=== PATIENT | male | born 1990 | race Caucasian/White ===

== ENCOUNTER 2018-05-17 00:55 | Emergency (ER) | payer SELFPAY ==
[~2018-05-17] VITALS: Ht 185.4 cm; Wt 77.1 kg
[2018-05-17] MEDS ORDERED: NKM (01:10)
[2018-05-17 01:25] VITALS: BP 139/90
--- NOTE | 2018-05-17 01:25 | NUR ---
ED Nurse Note: Patient presents to ED c/o abscess on upper buttocks. Patient reports the one on the right buttock has been reccurring for 10x years. Patient states the one on the left buttock has been there for 1x week. Patient reports 10/10 throbbing pain. Patient AOx4, VSS, ambulatory with steady gait, no s/s of acute distress noted at this time. Patient seen by ADRIELD at bedside.
[2018-05-17] MEDS ORDERED: HYDROCODON-ACE1 EA15 ORAL (01:36)
[2018-05-17] MEDS ORDERED: IBUPROFEN600 MG ORAL (01:36)
[2018-05-17] MEDS ORDERED: BACTRIM DS TAB1 EAC1 ORAL (01:36)
--- NOTE | 2018-05-17 01:37 | Emergency Room Report ---
History of Present Illness General Chief Complaint: Skin Rash/Abscess Source: Patient Present Illness HPI Is a 28-year-old male with a history of pilonidal this. He presents with chief complaint of swelling and pain to that area. His been ongoing for a while but worse in the last week. Now with left leg is in a drain. Pain is 10 out of 10. Worse with palpation and movement. No fever or chills. Seen his doctor before and was prescribe antibiotics. Not helping. No other complaint. Allergies: Coded Allergies: No Known Allergies (Unverified , 05/17/18) Patient History Past Medical History: see triage record, old chart reviewed Past Surgical History: none Pertinent Family History: none Social History: Denies: smoking Immunizations: other Reviewed Nursing Documentation: PMH: Agreed; PSxH: Agreed Review of Systems Eye: Denies: eye pain, blurred vision ENT: Denies: ear pain, nose congestion, throat swelling Respiratory: Denies: cough, shortness of breath Cardiovascular: Denies: chest pain, palpitations Gastrointestinal: Denies: abdominal pain, diarrhea, nausea, vomiting Musculoskeletal: Denies: back pain, joint pain Skin: Denies: rash Neurological: Denies: headache, numbness Endocrine: Denies: increased thirst, increased urine Hematologic/Lymphatic: Denies: easy bruising All Other Systems: negative except mentioned in HPI Physical Exam Vital Signs Date Time Temp Pulse Resp B/P (MAP) Pulse Ox O2 Delivery O2 Flow Rate FiO2 05/17/18 01:04 99.3 97 18 139/90 95 Room Air vitals normal Sp02 EP Interpretation: reviewed, normal General Appearance: well appearing, no apparent distress, alert Head: normocephalic, atraumatic Eyes: bilateral eye PERRL, bilateral eye EOMI ENT: hearing grossly normal, normal pharynx Neck: full range of motion, supple, no meningismus Respiratory: chest non-tender, lungs clear, normal breath sounds Cardiovascular #1: regular rate, rhythm, no murmur Gastrointestinal: normal bowel sounds, non tender, no mass, no organomegaly, no bruit, non-distended Rectal: other - Patient with a pilonidal abscess mostly on the right side. There is to area of necrosis. Very tender to palpation. Musculoskeletal: back normal, gait/station normal, normal range of motion Neurologic: alert, oriented x3 Psychiatric: mood/affect normal Skin: warm/dry Procedures Incision and Drainage Incision and Drainage : Consent: Verbal Site: Buttock Blade Size: 11 I & D Procedure: betadine prep, gauze wick placed Wound Location: other - Buttock Anesthesia: 1% Lidocaine Volume Anesthetic (ccs): 5 Patient Tolerated: Well Complications: None Progress Area cleaned with chlorhexidine. Local anesthetic 1% lidocaine with epinephrine. I made a 1 cm incision. There was copious amount of purulent discharge. Luckily the area broken up. Wound irrigated. Then packed with iodoform gauze. Patient tolerates procedure without a problem. Medical Decision Making Diagnostic Impression: Primary Impression: Pilonidal abscess ER Course Patient presents with an infected upon idle cysts with abscess. No evidence of deep infection or involvement to the rectal area. We'll discharge home. Last Vital Signs Date Time Temp Pulse Resp B/P (MAP) Pulse Ox O2 Delivery O2 Flow Rate FiO2 05/17/18 01:04 99.3 97 18 139/90 95 Room Air Status: improved Disposition: HOME, SELF-CARE Condition: Stable Scripts Ibuprofen* (MOTRIN*) 600 Mg Tablet 600 MG ORAL THREE TIMES A DAY, #30 TAB 0 Refills Prov: Byron Vega MD 05/17/18 Hydrocodone/Acetaminophen 5-325* (HYDROCODONE/ACETAMINOPHEN 5-325*) 1 Each Tablet 1 TAB ORAL Q6H PRN for For Pain, #10 TAB 0 Refills Prov: Byron Vega MD 05/17/18 Trimethoprim/Sulfamethoxazole 160/800* (BACTRIM DS TABLET*) 1 Each Tablet 1 TAB ORAL Q12H, #14 TAB 0 Refills Prov: Byron Vega MD 05/17/18 Referrals: NOT CHOSEN IPA/,REFERRING (PCP) Patient Instructions: Abscess Additional Instructions: Follow up in 2 days for recheck. Return if worse. Byron Vega MD May 17, 2018 01:37
--- NOTE | 2018-05-17 02:18 | NUR ---
ED Nurse Note: Patient cleared for discharge by NIKKI. Patient AOx4, VSS, ambulatory with steady gait, no s/s of acute distress noted at htis time. Patient provided with discharge instructions and medication prescriptions. Patient verbalized understanding. patient took all personal belongings with him. Patient has his friend at bedside to take him home. Patient instructed to follow up in 2x days.
[2018-05-17 02:19] VITALS: BP 139/90
== END 2018-05-17 02:20 | disposition home or self-care (01) ==
LOC: EMR 01:22
DX: R21 Rash and other nonspecific skin eruption (principal); L05.01 Pilonidal cyst with abscess
CPT/HCPCS: 99283

== ENCOUNTER 2018-05-19 15:14 | Emergency (ER) | payer SELFPAY ==
[~2018-05-19] VITALS: Ht 185.4 cm; Wt 74.8 kg
[~2018-05-19 15:14] MED LIST: BACTRIM DS TAB1 EAC1 ORAL; HYDROCODON-ACE1 EA15 ORAL; IBUPROFEN600 MG ORAL; NKM
[2018-05-19 15:24] VITALS: BP 126/86
--- NOTE | 2018-05-19 15:25 | NUR ---
ED Nurse Note: Patient came in from home for wound recheck follow up s/p I&D on the posterior sacral area.
--- NOTE | 2018-05-19 15:40 | Emergency Room Report ---
History of Present Illness General Chief Complaint: Wound Recheck/Suture Removal Source: Patient, Medical Record Present Illness HPI 28-year-old male patient presents the ER for wound check of pilonidal abscess. Reports having abscess drained in this ER 2 days ago. Reports is been taking medications and antibiotics as instructed. Denies fever, chest pain, vomiting, diarrhea. Reports healing well. Reports pain with sitting. Denies blood in stool. Denies other aggravating or relieving symptoms. Denies pain with bowel movements. Allergies: Coded Allergies: No Known Allergies (Unverified , 05/17/18) Patient History Past Medical History: see triage record Reviewed Nursing Documentation: PMH: Agreed; PSxH: Agreed Review of Systems All Other Systems: negative except mentioned in HPI Physical Exam Vital Signs Date Time Temp Pulse Resp B/P (MAP) Pulse Ox O2 Delivery O2 Flow Rate FiO2 05/19/18 15:19 98.6 91 17 126/86 98 Room Air Sp02 EP Interpretation: reviewed, normal General Appearance: well appearing, no apparent distress, alert, GCS 15, non- toxic Head: normocephalic, atraumatic Eyes: bilateral eye normal inspection, bilateral eye PERRL ENT: hearing grossly normal, normal pharynx, no angioedema, normal voice, uvula midline, moist mucus membranes Neck: full range of motion Respiratory: lungs clear, normal breath sounds, no rhonchi, no respiratory distress, no accessory muscle use, no wheezing, speaking full sentences Cardiovascular #1: regular rate, rhythm, no edema Musculoskeletal: back normal, digits/nails normal, gait/station normal, normal range of motion, non-tender Neurologic: alert, oriented x3, responsive, motor strength/tone normal, sensory intact Psychiatric: mood/affect normal Skin: other - Healing drained pilonidal abscess mostly on right side, no surrounding erythema or edema, open wound with iodoform gauze Medical Decision Making PA Attestation Dr. Ledezma is my supervising Physician whom patient management has been discussed with. Diagnostic Impression: Primary Impression: Encounter for wound re-check ER Course Pt. presents to the ED requesting wound check of pilonidal abscess. Ddx considered but are not limited to cellulitis, abscess, wound check, folliculitis. Vital signs: are WNL, pt. is afebrile ER COURSE: Wound appears to be healing well, no surrounding erythema or edema, no active drainage. Wound cleaned in the ER. Repacked with iodoform gauze and instructed patient return to the ER in 3 days for follow-up with primary care provider for wound check. Wound redressed with sterile gauze. Continue taking medications as previously instructed. ER precautions given. DISCHARGE: Patient instructed to continue with medications per initial ER provider instructions. At this time pt. is stable for d/c to home. Patient resting comfortably, in no acute distress, nontoxic appearing. Will provide printed patient care instructions and any necessary prescriptions. Care plan and follow up instructions have been discussed with the patient prior to discharge. Patient instructed to follow-up with primary care provider for further treatment and referral. Patient questions asked and answered. ER precautions given. Patient instructed to return to ER immediately for any new or worsening of symptoms including but not limited to fever, worsening of pain symptoms. - Please note that this Emergency Department Report was dictated using [employer] operations director technology software, occasionally this can lead to erroneous entry secondary to interpretation by the dictation equipment. Last Vital Signs Date Time Temp Pulse Resp B/P (MAP) Pulse Ox O2 Delivery O2 Flow Rate FiO2 05/19/18 15:24 98.6 91 17 126/86 98 Room Air Status: improved Disposition: HOME, SELF-CARE Condition: Stable Patient Instructions: Wound Check Additional Instructions: Followup with primary care provider or return to ER in 3 days for wound check. Take medications as directed. Keep clean and dry. Patient questions asked and answered. ER precautions given, patient instructed to return to ER immediately for any new or worsening of symptoms. Carlos Alberto Lombardi May 19, 2018 15:40
--- NOTE | 2018-05-19 16:20 | NUR ---
ED Nurse Note: PT is medically cleared per ERMD order. pt is stable for transfer. pt status condition and vital signs are reported to ERMD prior to DC. pt vital signs are stable. pt is alert and oriented times 4. pt left with all belongings, including DC notes and prescriptions. pt was able to teach back and understands DC notes and prescription. pt is instructed to follow up with primary MD as soon as possible, pt is instructed to return to ER if any variance in condition. ID band removed
[2018-05-19 16:23] VITALS: BP 126/86
[2018-10-13] MEDS ORDERED: IBUPROFEN600 MG ORAL ×2 (20:02)
== END 2018-05-19 16:20 | disposition home or self-care (01) ==
LOC: EMR 15:50
DX: Z48.00 Encounter for change or removal of nonsurgical wound dressing (principal); L05.01 Pilonidal cyst with abscess
CPT/HCPCS: 99281

== ENCOUNTER 2018-07-23 20:53 | Emergency (ER) | payer SELFPAY ==
[~2018-07-23] VITALS: Ht 185.4 cm; Wt 70.3 kg
[2018-07-23 21:17] VITALS: BP 125/76
--- NOTE | 2018-07-23 21:17 | NUR ---
ED Nurse Note: Pt arrived ED from Home, c/o Flu like symptum and general body weekness for a week. Pt is A/O X4. Vital signs stable at this time, waiting for orders.
[2018-07-23] MEDS ORDERED: TAMIFLU75 MG ORAL (21:35)
[2018-07-23] MEDS ORDERED: IBUPROFEN600 MG ORAL (21:35)
[2018-07-23 21:40] VITALS: BP 123/75
--- NOTE | 2018-07-23 21:40 | NUR ---
ER DISCHARGE NOTE: Patient is cleared to be discharged per Dr. Artis. Meds given as ordered. Pt is A/Ox4 on room air with stable vital signs, pt was given dc and prescription instructions, pt was able to verbalize understanding, pt id band removed. pt is able to ambulate with steady gait and pt took all belongings.
--- NOTE | 2018-07-24 01:20 | Emergency Room Report ---
History of Present Illness General Chief Complaint: Flu Like Symptoms Source: Patient Present Illness HPI 28-year-old M presents ED for evaluation. Patient complaining of generalized weakness times one week. States he has generalized body aches and chills. Notes congestion. Denies cough. States she's been very thirsty and drinking lots of water. Denies history of diabetes. Denies sick contacts or recent travel. Denies getting flu shot this year. No other aggravating relieving factors. Denies any other associated symptoms Allergies: Coded Allergies: No Known Allergies (Unverified , 05/17/18) Patient History Past Medical History: none Past Surgical History: none Pertinent Family History: none Social History: Denies: smoking, alcohol use, drug use Immunizations: UTD Reviewed Nursing Documentation: PMH: Agreed; PSxH: Agreed Nursing Documentation-PMH Past Medical History: No History, Except For Review of Systems All Other Systems: negative except mentioned in HPI Physical Exam Vital Signs Date Time Temp Pulse Resp B/P (MAP) Pulse Ox O2 Delivery O2 Flow Rate FiO2 07/23/18 21:11 99.9 89 18 125/76 98 Room Air Sp02 EP Interpretation: reviewed, normal General Appearance: no apparent distress, alert, GCS 15, non-toxic Head: normocephalic, atraumatic Eyes: bilateral eye normal inspection, bilateral eye PERRL ENT: hearing grossly normal, normal pharynx, no angioedema, normal voice Neck: full range of motion, supple/symm/no masses Respiratory: chest non-tender, lungs clear, normal breath sounds, speaking full sentences Cardiovascular #1: regular rate, rhythm, no edema Cardiovascular #2: 2+ carotid (R), 2+ carotid (L), 2+ radial (R), 2+ radial (L) , 2+ dorsalis pedis (R), 2+ dorsalis pedis (L) Gastrointestinal: normal bowel sounds, non tender, soft, non-distended, no guarding, no rebound Rectal: deferred Genitourinary: normal inspection, no CVA tenderness Musculoskeletal: back normal, gait/station normal, normal range of motion, non- tender Neurologic: alert, oriented x3, responsive, motor strength/tone normal, sensory intact, speech normal Psychiatric: judgement/insight normal, memory normal, mood/affect normal, no suicidal/homicidal ideation Reflexes: 3+ bicep (R), 3+ bicep (L), 3+ tricep (R), 3+ tricep (L), 3+ knee (R) , 3+ knee (L) Skin: normal color, no rash, warm/dry, well hydrated Lymphatic: no adenopathy Medical Decision Making Diagnostic Impression: Primary Impression: Influenza-like symptoms ER Course Hospital Course 28-year-old M presents to ED complaining of bodyaches, weakness Differential diagnoses include: URI, pharyngitis, otitis media, influenza Clinical course Patient placed on stretcher. After initial history physical exam reveals a young male in no acute distress. Bilateral TM unremarkable, no pharyngeal erythema. Lungs clear. No CVA tenderness. Accu-Chek within normal limits consideration for influenza. We'll discharge with Tamiflu. Safe for discharge with close outpatient follow-up. Patient states he does not have a PMD. We'll provide referrals Diagnosis - influenza-like symptoms Stable and discharged home with prescriptions for tamiflu, motrin. drink plenty of fluids. Instructed to followup with PMD. Return to ED if symptoms recur or worsen Last Vital Signs Date Time Temp Pulse Resp B/P (MAP) Pulse Ox O2 Delivery O2 Flow Rate FiO2 07/23/18 21:11 99.9 89 18 125/76 98 Room Air Status: improved Disposition: HOME, SELF-CARE Condition: Stable Scripts Ibuprofen* (MOTRIN*) 600 Mg Tablet 600 MG ORAL Q8H PRN for For Pain, #30 TAB 0 Refills Prov: Zenon Artis MD 07/23/18 Oseltamivir Phosphate (Tamiflu) 75 Mg Capsule 75 MG ORAL TWICE A DAY for 5 Days, CAP Prov: Zenon Artis MD 07/23/18 Referrals: [facility] Patient Instructions: Influenza, Adult, [id number] Zenon Artis MD Jul 24, 2018 01:20
== END 2018-07-23 21:50 | disposition home or self-care (01) ==
LOC: EMR 21:46
DX: J11.1 Influenza due to unidentified influenza virus with other respiratory manifestations (principal)
CPT/HCPCS: 99282

== ENCOUNTER 2018-10-13 17:07 | Emergency (ER) | payer SELFPAY ==
[~2018-10-13] VITALS: Ht 185.4 cm; Wt 74.8 kg
[~2018-10-13 17:07] MED LIST changes: +TAMIFLU75 MG ORAL
[2018-10-13 17:30] VITALS: BP 133/85
--- NOTE | 2018-10-13 18:06 | NUR ---
ED Nurse Note: Patient presents toER due to redness, swelling on the right posterior thigh for the past few days; reports no fever, chill or N/V. Denies any injury or insect bite. Patient awake, alert, oriented x 4. Regular, unlabored breathing noted.
--- NOTE | 2018-10-13 19:04 | Emergency Room Report ---
History of Present Illness General Chief Complaint: Skin Rash/Abscess Source: Patient Present Illness HPI 28-year-old male presents to the emergency department complaining of 10 out of 10 severity progressive pain, swelling, erythema and tenderness to the posterior aspect of the right thigh over the course of 3 days. Patient reports he at one point noticed a small macias in the center of where all the redness progressed from. Patient denies fevers or chills he denies illicit drug use, history of immune compromise, itching or recent travel. Palpation exacerbates his symptoms he denies any relieving factors at this time. Allergies: Coded Allergies: No Known Allergies (Unverified , 05/17/18) Patient History Past Medical History: see triage record Past Surgical History: none Pertinent Family History: none Reviewed Nursing Documentation: PMH: Agreed Nursing Documentation-PMH Past Medical History: No History, Except For Review of Systems All Other Systems: negative except mentioned in HPI Physical Exam Vital Signs Date Time Temp Pulse Resp B/P (MAP) Pulse Ox O2 Delivery O2 Flow Rate FiO2 10/13/18 17:30 99.1 16 133/85 96 Room Air 10/13/18 17:30 74 Sp02 EP Interpretation: reviewed, normal General Appearance: no apparent distress, alert, GCS 15, non-toxic Head: normocephalic, atraumatic Eyes: bilateral eye normal inspection, bilateral eye PERRL ENT: hearing grossly normal, normal voice Neck: full range of motion Respiratory: lungs clear, normal breath sounds, speaking full sentences Cardiovascular #1: regular rate, rhythm Musculoskeletal: back normal, gait/station normal, normal range of motion, non- tender Neurologic: alert, oriented x3, responsive, motor strength/tone normal, sensory intact, speech normal, grossly normal Psychiatric: judgement/insight normal Skin: no rash, warm/dry, well hydrated, other - 2cm abscess with surrounding erythema, and warmth of the posterior right thigh. Procedures Incision and Drainage Incision and Drainage : Consent: Verbal Site: right posterior thigh Blade Size: 11 I & D Procedure: betadine prep, sterile drapes applied, sterile dressing applied Wound Location: other - right posterior thigh Wound's Depth, Shape: linear Wound Length (cm): 2 Wound Explored: contaminated - pus Anesthesia: Lidocaine w/ Epi Volume Anesthetic (ccs): 3 Splint Applied?: No Sling Applied?: No Patient Tolerated: Well Complications: None Medical Decision Making PA Attestation Dr. Box is my supervising Physician whom patient management has been discussed with. Diagnostic Impression: Primary Impression: Abscess ER Course 28-year-old male presents to the emergency department complaining of 10 out of 10 severity progressive pain, swelling, erythema and tenderness to the posterior aspect of the right thigh over the course of 3 days. Patient reports he at one point noticed a small macias in the center of where all the redness progressed from. Patient denies fevers or chills he denies illicit drug use, history of immune compromise, itching or recent travel. Palpation exacerbates his symptoms he denies any relieving factors at this time. Ddx considered but are not limited to cellulitis, abscess, cystic acne, necrotizing fasciitis, insect bite. Vital signs: are WNL, pt. is afebrile H&PE are most consistent with Right posterior thigh abscess ORDERS: none required at this time, the diagnosis is clinical ED INTERVENTIONS: -I & D. -Motrin PO DISCHARGE: At this time pt. is stable for d/c to home. Will provide printed patient care instructions, and any necessary prescriptions. Care plan and follow up instructions have been discussed with the patient prior to discharge. Last Vital Signs Date Time Temp Pulse Resp B/P (MAP) Pulse Ox O2 Delivery O2 Flow Rate FiO2 10/13/18 17:30 99.1 74 16 133/85 (101) 96 Room Air Disposition: HOME, SELF-CARE Condition: Stable Scripts Ibuprofen* (MOTRIN*) 600 Mg Tablet 600 MG ORAL THREE TIMES A DAY, #30 TAB 0 Refills Prov: Hannah Muller 10/13/18 Trimethoprim/Sulfamethoxazole 160/800* (BACTRIM DS TABLET*) 1 Each Tablet 1 TAB ORAL TWICE A DAY for 7 Days, #14 TAB Prov: Hannah Muller 10/13/18 Cephalexin* (KEFLEX*) 500 Mg Capsule 500 MG ORAL EVERY 12 HOURS for 7 Days, #14 CAP 0 Refills Prov: Hannah Muller 10/13/18 Patient Instructions: Abscess Additional Instructions: Take medications as directed. Follow up with a Primary Care Provider in 3-5 days, even if your symptoms have resolved. --Please review list of primary care clinics, if you do not already have a primary care provider Return sooner to ED if new symptoms occur, or current symptoms become worse. - Please note that this Emergency Department Report was dictated using [employer] device repairer technology software, occasionally this can lead to erroneous entry secondary to interpretation by the dictation equipment. Hannah Muller Oct 13, 2018 19:04
[2018-10-13] MEDS ORDERED: CEPHALEXIN500 MG ORAL (19:05)
[2018-10-13] MEDS ORDERED: BACTRIM DS TAB1 EAC1 ORAL (19:05)
--- NOTE | 2018-10-13 19:15 | NUR ---
HAND-OFF: Report given to Marcy JACKSON.
[2018-10-13] MEDS ORDERED: IBUPROFEN600 MG ORAL (20:02)
[2018-10-13 20:06] VITALS: BP 133/85
--- NOTE | 2018-10-13 22:55 | NUR ---
ED Nurse Note: Pt cleared by health care Provider for discharge. DC instructions/prescription was given and explained to pt and verbalized understanding of teachings. All medical deviecs such as ID band removed. Pt is AAO x4, ambulatory and left with all personal belongings.
== END 2018-10-13 20:06 | disposition home or self-care (01) ==
LOC: EMR 18:00
DX: L02.415 Cutaneous abscess of right lower limb (principal)
CPT/HCPCS: 99283

== ENCOUNTER 2018-11-24 08:29 | Emergency (ER) | payer SELFPAY ==
[~2018-11-24] VITALS: Ht 185.4 cm; Wt 73.0 kg
[~2018-11-24 08:29] MED LIST changes: +CEPHALEXIN500 MG ORAL
--- NOTE | 2018-11-24 08:43 | NUR ---
ED Nurse Note: Pt walked in ED c/o abdominal pain, "ongoing rectal bleeding" x 3 months. Last BM 4 days ago per patient.
[2018-11-24] MEDS ORDERED: Isovue-300 100ml vial INJ PRN (08:45)
--- NOTE | 2018-11-24 08:51 | NUR ---
ED Nurse Note: ERMD at bedside.
[2018-11-24] MEDS ORDERED: Azithromycin 250mg tab ORAL ONE (09:00)
[2018-11-24] MEDS ORDERED: Bicillin LA 2.4MMU/4ML SYR IM ONE (09:00)
[2018-11-24] MEDS ORDERED: cefTRIAXone 1 GM in NS 55 ML IVPB ONE (09:00)
--- NOTE | 2018-11-24 09:00 | NUR ---
ED Nurse Note: ERMD at bedside and was chaperoned for rectal exam.
--- NOTE | 2018-11-24 09:02 | Emergency Room Report ---
History of Present Illness General Chief Complaint: Abdominal Pain Source: Patient Present Illness HPI 28-year-old male history of ADHD presents with 3 months of mildly bloody stools , with abdominal cramps, no aggravating or alleviating factors, severity is mild , patient also endorses weight loss, patient states over the past 2 days he had a lot of rectal pain, tenesmus, some blood mixed in with the stool, fever subjective, chills, body aches, patient states he had receptive anal intercourse 5 days prior to arrival, he states that the rectal pain is sharp in nature, moderate severity aggravated by defecation, alleviated by rest, severity is moderate, patient presents for evaluation. Allergies: Coded Allergies: No Known Allergies (Unverified , 05/17/18) Patient History Past Medical History: see triage record Social History: Reports: smoking, alcohol use - Social Reviewed Nursing Documentation: PMH: Agreed; PSxH: Agreed Nursing Documentation-PM Past Medical History: No History, Except For Review of Systems Constitutional: Reports: chills, fever Eye: Denies: blurred vision, double vision ENT: Denies: throat pain, nasal discharge Respiratory: Denies: cough, shortness of breath Cardiovascular: Denies: chest pain, palpitations Gastrointestinal: Reports: abdominal pain, constipation, diarrhea, other; Denies: nausea, vomiting Genitourinary: Denies: dysuria, pain Musculoskeletal: Reports: muscle pain; Denies: back pain Skin: Denies: rash, lesions Neurological: Denies: headache, focal weakness Hematologic/Lymphatic: Denies: easy bleeding, easy bruising All Other Systems: negative except mentioned in HPI Physical Exam Vital Signs Date Time Temp Pulse Resp B/P (MAP) Pulse Ox O2 Delivery O2 Flow Rate FiO2 11/24/18 08:31 98.4 83 17 128/86 (100) 97 Room Air Sp02 EP Interpretation: reviewed, normal General Appearance: well appearing, no apparent distress, alert Head: normocephalic, atraumatic Eyes: bilateral eye PERRL, bilateral eye EOMI ENT: uvula midline, moist mucus membranes Neck: supple, thyroid normal, supple/symm/no masses Respiratory: lungs clear, no respiratory distress, no retraction, no accessory muscle use Cardiovascular #1: normal peripheral pulses, regular rate, rhythm, no edema, no gallop, no murmur Gastrointestinal: non tender, soft, no guarding, no rebound Rectal: other - Cold Working Inspector MAR I RN, Hemoccult positive, no hemorrhoids felt, no drainage or pus noted, severe tenderness to palpation in the rectal area, patient was clenching difficult to palpate prostate Musculoskeletal: normal inspection Neurologic: alert, oriented x3 Psychiatric: mood/affect normal Skin: no rash, warm/dry Medical Decision Making Diagnostic Impression: Primary Impression: Proctitis ER Course 28-year-old male presents with symptoms of weight loss, x3 months, will evaluate for large mass, symptoms of tenesmus, most consistent with proctitis, on the differential includes chlamydia, gonorrhea, syphilis, will page provide patient with Bicillin, ceftriaxone, azithromycin, counseled patient to seek STD treatment, and to utilize protection during sexual encounters. Patient given antibiotics, patient is feeling better, patient has gas in his right buttock secondary to penicillin injection, correlated with CT Disposition home with return precautions Laboratory Tests Test 11/24/18 08:50 White Blood Count 7.1 K/UL (4.8-10.8) Red Blood Count 5.71 M/UL (4.70-6.10) Hemoglobin 15.5 G/DL (14.2-18.0) Hematocrit 48.2 % (42.0-52.0) Mean Corpuscular Volume 84 FL (80-99) Mean Corpuscular Hemoglobin 27.2 PG (27.0-31.0) Mean Corpuscular Hemoglobin Concent 32.2 G/DL (32.0-36.0) Red Cell Distribution Width 12.2 % (11.6-14.8) Platelet Count 228 K/UL (150-450) Mean Platelet Volume 5.8 FL (6.5-10.1) L Neutrophils (%) (Auto) 64.1 % (45.0-75.0) Lymphocytes (%) (Auto) 26.7 % (20.0-45.0) Monocytes (%) (Auto) 7.0 % (1.0-10.0) Eosinophils (%) (Auto) 1.4 % (0.0-3.0) Basophils (%) (Auto) 0.8 % (0.0-2.0) Prothrombin Time 10.0 SEC (9.30-11.50) Prothrombin Time INR 0.9 (0.9-1.1) PTT 30 SEC (23-33) Urine Color Yellow Urine Appearance Clear Urine pH 7 (4.5-8.0) Urine Specific [place] 1.010 (1.005-1.035) Urine Protein Negative (NEGATIVE) Urine Glucose (UA) Negative (NEGATIVE) Urine Ketones Negative (NEGATIVE) Urine Blood Negative (NEGATIVE) Urine Nitrite Negative (NEGATIVE) Urine Bilirubin Negative (NEGATIVE) Urine Urobilinogen 4 MG/DL (0.0-1.0) H Urine Leukocyte Esterase 1+ (NEGATIVE) H Urine RBC 0 /HPF (0 - 0) Urine WBC 0-2 /HPF (0 - 0) Urine Squamous Epithelial Cells Occasional /LPF Urine Amorphous Sediment Moderate /LPF (NONE) H Urine Bacteria None /HPF (NONE) Urine Mucus Few /LPF (NONE/OCC) H Sodium Level 142 MMOL/L (136-145) Potassium Level 3.9 MMOL/L (3.5-5.1) Chloride Level 105 MMOL/L (98-107) Carbon Dioxide Level 34 MMOL/L (21-32) H Anion Gap 3 mmol/L (5-15) L Blood Urea Nitrogen 11 mg/dL (7-18) Creatinine 1.0 MG/DL (0.55-1.30) Estimate Glomerular Filtration Rate > 60 mL/min (>60) Glucose Level 60 MG/DL (74-106) L Calcium Level 9.2 MG/DL (8.5-10.1) Total Bilirubin 0.6 MG/DL (0.2-1.0) Aspartate Amino Transferase (AST) 12 U/L (15-37) L Alanine Aminotransferase (ALT) 19 U/L (12-78) Alkaline Phosphatase 85 U/L (46-116) Total Protein 8.6 G/DL (6.4-8.2) H Albumin 3.8 G/DL (3.4-5.0) Globulin 4.8 g/dL Albumin/Globulin Ratio 0.8 (1.0-2.7) L Lipase 56 U/L (73-393) L CT/MRI/US Diagnostic Results CT/MRI/US Diagnostic Results : Impression Impression: Limited assessment of the GI tract, due to lack of enteric contrast 7 x 1 cm collection of gas bubbles within the right gluteus naseem musculature. This may indicate an area of recent injection, but is unusually large for such and the possibility of active infection with a gas-forming organism should be considered No definite rectal or colonic abnormality to explain stated clinical history of GI bleed Nonspecific prominent perirectal nodes Mild prominence of the proximal small bowel mucosa, doubtful significance but the possibility of mild enteritis should be considered Borderline splenomegaly Findings discussed by phone with Dr. Farah in the emergency room at the time of interpretation The CT scanner at [facility] is accredited by the [employer] and the scans are performed using protocols designed to limit radiation exposure to as low as reasonably achievable to attain images of sufficient resolution adequate for diagnostic evaluation. Last Vital Signs Date Time Temp Pulse Resp B/P (MAP) Pulse Ox O2 Delivery O2 Flow Rate FiO2 11/24/18 08:31 98.4 83 17 128/86 (100) 97 Room Air Referrals: [facility] Patient Instructions: Chlamydia, Male, Proctitis, Safe Sex, Sexually Transmitted Disease, [id number], Syphilis Test Additional Instructions: The patient was provided with discharge instructions, notified to follow-up with a primary care doctor and or specialist in the next 24-48 hours, and to return to the ED if they have worsening of their symptoms. Please note that this report is being documented using Hailo technology. This can lead to erroneous entry secondary to incorrect interpretation by the dictating instrument. Kirby Farah MD Nov 24, 2018 09:02
[2018-11-24 09:14] LABS: APPEARANCE,URINE CLEAR; BILIRUBIN, URINE NEGATIVE (NEGATIVE); GLUCOSE, URINE (UA) NEGATIVE (NEGATIVE); KETONES,URINE NEGATIVE (NEGATIVE); LEUKOCYTE ESTERASE ,URINE 1+ (NEGATIVE); NITRITE,URINE NEGATIVE (NEGATIVE); PH,URINE 7 (4.5-8.0); PROTEIN,URINE NEGATIVE (NEGATIVE); UROBILINOGEN,URINE 4 MG/DL (0.0-1.0)
[2018-11-24 09:17] LABS: BASOPHILS % (AUTO) 0.8 % (0.0-2.0); COLOR,URINE YELLOW; EOSINOPHILS % (AUTO) 1.4 % (0.0-3.0); HEMATOCRIT 48.2 % (42.0-52.0); HEMOGLOBIN 15.5 G/DL (14.2-18.0); LYMPHOCYTES % (AUTO) 26.7 % (20.0-45.0); MEAN CORPUSCULAR VOLUME 84 FL (80-99); NEUTROPHILS % (AUTO) 64.1 % (45.0-75.0); PLATELET COUNT 228 K/UL (150-450); RED BLOOD COUNT 5.71 M/UL (4.70-6.10); RED CELL DISTRIBUTION WIDTH 12.2 % (11.6-14.8); WHITE BLOOD COUNT 7.1 K/UL (4.8-10.8)
[2018-11-24 09:24] LABS: INR 0.9 (0.9-1.1)
[2018-11-24 09:25] LABS: ANION GAP 3 mmol/L (5-15); BLOOD UREA NITROGEN 11 mg/dL (7-18); CALCIUM 9.2 MG/DL (8.5-10.1); CARBON DIOXIDE 34 MMOL/L (21-32); CHLORIDE 105 MMOL/L (98-107); POTASSIUM 3.9 MMOL/L (3.5-5.1); SODIUM 142 MMOL/L (136-145)
[2018-11-24 09:32] VITALS: BP 123/66
[2018-11-24 09:33] LABS: ALANINE AMINOTRANSFERASE 19 U/L (12-78); ALBUMIN 3.8 G/DL (3.4-5.0); ALBUMIN/GLOBULIN RATIO 0.8 (1.0-2.7); ALKALINE PHOSPHATASE 85 U/L (46-116); ASPARTATE AMINO TRANSFERASE 12 U/L (15-37); BILIRUBIN,TOTAL 0.6 MG/DL (0.2-1.0)
[2018-11-24] MEDS ORDERED: NKM (09:42)
--- NOTE | 2018-11-24 09:43 | NUR ---
ED Nurse Note: Pt went down for CT in stable condition.
--- NOTE | 2018-11-24 09:58 | NUR ---
ED Nurse Note: Pt back from CT in stable condition.
[2018-11-24 10:01] VITALS: BP 122/83
[2018-11-24] MEDS ORDERED: Morphine Sulfate 4mg/ml Inj (IV USE ONLY) IVP ONE (10:30)
[2018-11-24 10:34] VITALS: BP 112/77
--- NOTE | 2018-11-24 10:42 | Diagnostic Imaging Report ---
Clinical Indication: Abdominal pain Technique: No oral contrast utilized, per emergency room physician request IV administration nonionic contrast. Venous phase spiral acquisition obtained through the abdomen and pelvis. Multiplanar reconstructions were generated. Total dose length product 626.63 mGycm. CTDIvol(s) 11.66 mGy. Dose reduction achieved using automated exposure control Comparison: none Findings: Lack of enteric contrast limits assessment of the GI tract. The appendix is normal no evidence of diverticulosis or diverticulitis. No small bowel distention. There is equivocal mild wall thickening of the proximal jejunum, with slight enhancement of the bowel wall. Moderate amount of fluid is seen in distal small bowel loops. No free or loculated intraperitoneal gas or fluid. Distal esophagus, stomach, duodenum are unremarkable. No significant perirectal abnormality is demonstrated. No significant renal abnormality demonstrated. A collection of gas bubbles in seen within the right gluteus naseem muscle. The area of gas bubbles measures approximately 7 cm long axis dimension by about 1 cm orthogonal short axis dimension. There is no associated fluid. The liver is unremarkable. The gallbladder is contracted and no definite gallstones are identified. Bile ducts, pancreas are unremarkable. The spleen is borderline enlarged, measuring 13.5 cm long axis dimension. There is an accessory splenule. The adrenals and kidneys are unremarkable. No renal or ureteral calculi, hydronephrosis, or hydroureter. No retroperitoneal or mesenteric mass or adenopathy. No pelvic mass. There are somewhat prominent perirectal lymph nodes measuring up to 1 cm in diameter.. The included lung bases are clear. The bones are unremarkable. Impression: Limited assessment of the GI tract, due to lack of enteric contrast 7 x 1 cm collection of gas bubbles within the right gluteus naseem musculature. This may indicate an area of recent injection, but is unusually large for such and the possibility of active infection with a gas-forming organism should be considered No definite rectal or colonic abnormality to explain stated clinical history of GI bleed Nonspecific prominent perirectal nodes Mild prominence of the proximal small bowel mucosa, doubtful significance but the possibility of mild enteritis should be considered Borderline splenomegaly Findings discussed by phone with Dr. Farah in the emergency room at the time of interpretation The CT scanner at [facility] is accredited by the [employer] and the scans are performed using protocols designed to limit radiation exposure to as low as reasonably achievable to attain images of sufficient resolution adequate for diagnostic evaluation.
--- NOTE | 2018-11-24 10:46 | NUR ---
ED Nurse Note: ERMD at bedside.
[2018-11-24 11:05] VITALS: BP 120/72
--- NOTE | 2018-11-24 11:10 | NUR ---
ER DISCHARGE NOTE: Patient is cleared to be discharged per ERMD, pt is aox4, on room air, with stable vital signs. pt was given dc instructions, pt was able to verbalize understanding, pt id band and iv site removed without complications. pt is able to ambulate with steady gait. pt took all belongings.
[2018-11-24 11:14] VITALS: BP 120/72
== END 2018-11-24 11:10 | disposition home or self-care (01) ==
LOC: EMR 09:04
DX: K62.89 Other specified diseases of anus and rectum (principal)
CPT/HCPCS: 36415; 74177; 80053; 81003; 83690; 85025; 85610; 85730; 86850; 86900; 86901; 96361; 96365; 96372; 96375; 99284; J0696; J2270; J2405; Q9967; S0028

== ENCOUNTER 2019-01-26 15:45 | Emergency (ER) | payer SELFPAY ==
[~2019-01-26] VITALS: Ht 185.4 cm; Wt 68.0 kg
[2019-01-26 16:00] VITALS: BP 136/80
--- NOTE | 2019-01-26 16:10 | NUR ---
ED Nurse Note: Patient walked into ED due to pain on the buttocks area for week. patient reports there is a lump and it is bleeding from the lump when he wipes. patient is alert awake x4 ambulatory steady gait, breathing unlabored and even, speaking in full sentences.
--- NOTE | 2019-01-26 17:43 | Emergency Room Report ---
History of Present Illness General Chief Complaint: General Complaint Source: Patient Present Illness HPI 28 YO male presents to the ED c/p 02/02 in severity progressive painful lump with rectal bleeding x 1 week. pt. reports Constipation and straining for BM's. Pt. reports BRBPR upon wiping after BM's. Pt. reports initially began as an itchy rash/ non-painful lump at the rectum. Pt. reports blood on his stool as well. He denies trauma to the area otherwise. pt. denies fevers, chills, Nausea or vomiting. Pt. denies hx of Hemorrhoids in the past. Pt. reports now sitting exacerbates his symptoms. Pt. denies hx of rectal abscesses or fissures. pt. reports hx of skin abscess in the past. Allergies: Coded Allergies: No Known Allergies (Unverified , 05/17/18) Patient History Past Medical History: see triage record Past Surgical History: none Pertinent Family History: none Reviewed Nursing Documentation: PMH: Agreed; PSxH: Agreed Nursing Documentation-PMH Past Medical History: No Stated History Review of Systems All Other Systems: negative except mentioned in HPI Physical Exam Vital Signs Date Time Temp Pulse Resp B/P (MAP) Pulse Ox O2 Delivery O2 Flow Rate FiO2 01/26/19 16:00 99.3 92 17 136/80 (98) 97 Room Air Sp02 EP Interpretation: reviewed, normal General Appearance: no apparent distress, alert, GCS 15, non-toxic Head: normocephalic, atraumatic Eyes: bilateral eye normal inspection, bilateral eye PERRL ENT: hearing grossly normal, normal voice Neck: full range of motion Respiratory: lungs clear, normal breath sounds, speaking full sentences Cardiovascular #1: regular rate, rhythm Gastrointestinal: normal bowel sounds, non tender, soft, non-distended, no guarding Rectal: blood streaked stool, hemorrhoids - in the 9 o 'clock position with visible tear and bleeding, non-thrombosed. no midline rectal tears. Musculoskeletal: back normal, gait/station normal, normal range of motion, non- tender Neurologic: alert, oriented x3, responsive, motor strength/tone normal, sensory intact, speech normal, grossly normal Psychiatric: judgement/insight normal Lymphatic: no adenopathy Medical Decision Making PA Attestation Dr. Glover Is my supervising Physician whom patient management has been discussed with. Diagnostic Impression: Primary Impression: Hemorrhoid Qualified Codes: K64.9 - Unspecified hemorrhoids Additional Impression: Bleeding hemorrhoid ER Course 28 YO male presents to the ED c/p 02/02 in severity progressive painful lump with rectal bleeding x 1 week. pt. reports Constipation and straining for BM's. Pt. reports BRBPR upon wiping after BM's. Pt. reports initially began as an itchy rash/ non-painful lump at the rectum. Pt. reports blood on his stool as well. He denies trauma to the area otherwise. pt. denies fevers, chills, Nausea or vomiting. Pt. denies hx of Hemorrhoids in the past. Pt. reports now sitting exacerbates his symptoms. Pt. denies hx of rectal abscesses or fissures. pt. reports hx of skin abscess in the past. Ddx considered but are not limited to constipation , anal fissure, perianal abscess, rectal wall tear, thrombosed hemorrhoid, bleeding hemorrhoid. Vital signs: are WNL, pt. is afebrile H&PE are most consistent with hemorrhoid , secondary to straining/ constipation. bowl sounds are normo active. 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 The dx. is clinical ED INTERVENTIONS: - -hydrocortisone tp -lidocaine jelly tp colace po Discussed the patient's self care interventions for hemorrhoids DISCHARGE: At this time pt. is stable for d/c to home. Will provide printed patient care instructions, and any necessary prescriptions. Care plan and follow up instructions have been discussed with the patient prior to discharge. Last Vital Signs Date Time Temp Pulse Resp B/P (MAP) Pulse Ox O2 Delivery O2 Flow Rate FiO2 01/26/19 16:00 99.3 92 17 136/80 (98) 97 Room Air Disposition: HOME, SELF-CARE Condition: Stable Scripts Docusate Sodium* (COLACE*) 100 Mg Capsule 100 MG ORAL THREE TIMES A DAY, #30 CAP Prov: Hannah Muller 01/26/19 Lidocaine HCL 2% Jelly* (Lidocaine Jelly 2%*) 5 Ml Jel.pf.lucy 1 APPLIC TOPIC TID for rectal pain, #5 ML 2 Refills Prov: Hannah Muller 01/26/19 Hydrocortisone Hc 2.5% Cream (ANUSOL-HC 2.5% CREAM) Y Cr 1 APPLIC RC Q6HR, #30 GM 2 Refills Prov: Hannah Muller 01/26/19 Patient Instructions: Hemorrhoids Additional Instructions: Take medications as directed. Follow up with a Primary Care Provider in 3-5 days, even if your symptoms have resolved. --Please review list of primary care clinics, if you do not already have a primary care provider Return sooner to ED if new symptoms occur, or current symptoms become worse. - Please note that this Emergency Department Report was dictated using TwoFsystem validation engineer technology software, occasionally this can lead to erroneous entry secondary to interpretation by the dictation equipment. Hannah Muller Jan 26, 2019 17:43
[2019-01-26] MEDS ORDERED: Lidocaine HCl 2% Jelly 6ml Tube TOPIC ONE (17:45)
[2019-01-26] MEDS ORDERED: Docusate 100mg cap ORAL ONE (17:45)
[2019-01-26] MEDS ORDERED: LD2JL30 TOPIC (18:17)
[2019-01-26] MEDS ORDERED: ANUSOL-HC30 GM RC (18:17)
[2019-01-26] MEDS ORDERED: COLACE100 MG ORAL (18:17)
[2019-01-26 18:40] VITALS: BP 136/80
--- NOTE | 2019-01-26 18:48 | NUR ---
ER DISCHARGE NOTE: Patient is cleared to be discharged per SHORTY MCLEOD, pt is aox4, on room air, with stable vital signs. pt was given dc and prescription instructions, pt was able to verbalize understanding, pt id band removed without complications. pt is able to ambulate with steady gait. pt took all belongings.
== END 2019-01-26 18:40 | disposition home or self-care (01) ==
LOC: EMR 18:35
DX: K64.9 Unspecified hemorrhoids (principal)
CPT/HCPCS: 99283

== ENCOUNTER 2019-04-04 03:10 | Emergency (ER) | payer SELFPAY ==
[~2019-04-04] VITALS: Ht 180.3 cm; Wt 68.0 kg
[~2019-04-04 03:10] MED LIST changes: +ANUSOL-HC30 GM RC; +COLACE100 MG ORAL; +LD2JL30 TOPIC
[2019-04-04 03:16] VITALS: BP 152/186
--- NOTE | 2019-04-04 03:16 | NUR ---
ED Nurse Note: Patient brought in by RA from home c/o vomiting since 199 today. Pt states he has been in and out of ERs due to rectal bleeding, described it as dark tarry stool. No episodes of vomiting at this time. Afebrile. No SOB. VSS. Addendum: 04/04/19 at 0340 by AARRIOLA ED Nurse Note: Pt also c/o headache since 199 today. Denies blurring of vision.
--- NOTE | 2019-04-04 03:30 | NUR ---
ED Nurse Note: ERMD at bedside.
--- NOTE | 2019-04-04 03:56 | NUR ---
ED Nurse Note: IV line established. blood specimen collected and sent to lab.
[2019-04-04 04:04] LABS: BASOPHILS % (AUTO) 0.5 % (0.0-2.0); EOSINOPHILS % (AUTO) 0.7 % (0.0-3.0); HEMATOCRIT 40.5 % (42.0-52.0); HEMOGLOBIN 13.4 G/DL (14.2-18.0); LYMPHOCYTES % (AUTO) 12.2 % (20.0-45.0); MEAN CORPUSCULAR VOLUME 82 FL (80-99); MONOCYTES % (AUTO) 5.5 % (1.0-10.0); NEUTROPHILS % (AUTO) 81.1 % (45.0-75.0); PLATELET COUNT 277 K/UL (150-450); RED BLOOD COUNT 4.95 M/UL (4.70-6.10); RED CELL DISTRIBUTION WIDTH 11.5 % (11.6-14.8); WHITE BLOOD COUNT 9.3 K/UL (4.8-10.8)
[2019-04-04 04:15] LABS: ANION GAP 7 mmol/L (5-15); BLOOD UREA NITROGEN 15 mg/dL (7-18); CALCIUM 8.6 MG/DL (8.5-10.1); CARBON DIOXIDE 31 MMOL/L (21-32); CHLORIDE 103 MMOL/L (98-107); CREATININE 0.9 MG/DL (0.55-1.30); POTASSIUM 3.9 MMOL/L (3.5-5.1); SODIUM 140 MMOL/L (136-145)
[2019-04-04 04:19] LABS: ALANINE AMINOTRANSFERASE 31 U/L (12-78); ALBUMIN 3.1 G/DL (3.4-5.0); ALBUMIN/GLOBULIN RATIO 0.7 (1.0-2.7); ALKALINE PHOSPHATASE 98 U/L (46-116); ASPARTATE AMINO TRANSFERASE 20 U/L (15-37); BILIRUBIN,TOTAL 0.5 MG/DL (0.2-1.0)
[2019-04-04] MEDS ORDERED: ONDANSETRON ODT4 MG BC (05:35)
[2019-04-04] MEDS ORDERED: RANITIDINE HCL150 MG ORAL (05:35)
[2019-04-04 05:44] VITALS: BP 132/73
--- NOTE | 2019-04-04 05:44 | NUR ---
ED Nurse Note: Pt cleared by ERMD for discharge. DC instructions/prescription was given and explained to pt and verbalized understanding of teachings. All medical deviecs such as ID band and IV line removed. Pt is AAO x4, ambulatory and left with all personal belongings.
--- NOTE | 2019-04-04 05:46 | Emergency Room Report ---
History of Present Illness General Chief Complaint: Vomiting Source: Patient Present Illness HPI 28-year-old male presents ED for evaluation. Brought in by EMS from home. Planing of nausea and vomiting. Started around 2 AM. Also feels dizzy. Denies abdominal pain. Denies fevers or chills. Denies alcohol or drug use. No other aggravating relieving factors. Denies any other associated symptoms Allergies: Coded Allergies: No Known Allergies (Unverified , 05/17/18) Patient History Past Medical History: none Past Surgical History: none Pertinent Family History: none Social History: Denies: smoking, alcohol use, drug use Immunizations: UTD Reviewed Nursing Documentation: PMH: Agreed; PSxH: Agreed Nursing Documentation-PMH Past Medical History: No History, Except For Review of Systems All Other Systems: negative except mentioned in HPI Physical Exam Vital Signs Date Time Temp Pulse Resp B/P (MAP) Pulse Ox O2 Delivery O2 Flow Rate FiO2 04/04/19 03:11 97.0 94 20 152/186 (175) 98 Room Air Sp02 EP Interpretation: reviewed, normal General Appearance: no apparent distress, alert, GCS 15, non-toxic Head: normocephalic, atraumatic Eyes: bilateral eye normal inspection, bilateral eye PERRL ENT: hearing grossly normal, normal pharynx, no angioedema, normal voice Neck: full range of motion, supple/symm/no masses Respiratory: chest non-tender, lungs clear, normal breath sounds, speaking full sentences Cardiovascular #1: regular rate, rhythm, no edema Cardiovascular #2: 2+ carotid (R), 2+ carotid (L), 2+ radial (R), 2+ radial (L) , 2+ dorsalis pedis (R), 2+ dorsalis pedis (L) Gastrointestinal: normal bowel sounds, non tender, soft, non-distended, no guarding, no rebound Rectal: deferred Genitourinary: normal inspection, no CVA tenderness Musculoskeletal: back normal, normal range of motion, gait/station normal, non- tender Neurologic: alert, motor strength/tone normal, oriented x3, sensory intact, responsive, speech normal Psychiatric: judgement/insight normal, memory normal, mood/affect normal, no suicidal/homicidal ideation Reflexes: 3+ bicep (R), 3+ bicep (L), 3+ tricep (R), 3+ tricep (L), 3+ knee (R) , 3+ knee (L) Lymphatic: no adenopathy Medical Decision Making Diagnostic Impression: Primary Impression: Gastritis Qualified Codes: K29.00 - Acute gastritis without bleeding ER Course Hospital Course 28 yo M presents with dizziness and nausea and vomiting differential diagnosis: gastritis, SBO, cholecystits Clinical course Patient placed on stretcher. 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 After initial history and physical I ordered labs, IV fluids, Zofran and pepcid Labs - no leukocytosis, no electrolyte abnormalities, LFTs normal, On reassessment patient states he feels better. Will discharge to home. Does not have a PMD. Has been here multiple times for hemorrhoids and rectal bleeding. Will provide referrals. I feel this is a highly complex case requiring extensive working including EKG/ Rhythm strip, Xray/CT/US, Blood/urine lab work, repeat exams while in ED, and administration of strong opiates/narcotics for pain control, admission to hospital or close patient follow up. Diagnosis - gastritis Stable and discharged to home with prescriptions for Zantac, zofran. Followup with PMD. Return to ED if symptoms recur or worsen Labs Test 04/04/19 03:52 White Blood Count 9.3 K/UL (4.8-10.8) Red Blood Count 4.95 M/UL (4.70-6.10) Hemoglobin 13.4 G/DL (14.2-18.0) Hematocrit 40.5 % (42.0-52.0) Mean Corpuscular Volume 82 FL (80-99) Mean Corpuscular Hemoglobin 27.0 PG (27.0-31.0) Mean Corpuscular Hemoglobin Concent 33.1 G/DL (32.0-36.0) Red Cell Distribution Width 11.5 % (11.6-14.8) Platelet Count 277 K/UL (150-450) Mean Platelet Volume 5.0 FL (6.5-10.1) Neutrophils (%) (Auto) 81.1 % (45.0-75.0) Lymphocytes (%) (Auto) 12.2 % (20.0-45.0) Monocytes (%) (Auto) 5.5 % (1.0-10.0) Eosinophils (%) (Auto) 0.7 % (0.0-3.0) Basophils (%) (Auto) 0.5 % (0.0-2.0) Sodium Level 140 MMOL/L (136-145) Potassium Level 3.9 MMOL/L (3.5-5.1) Chloride Level 103 MMOL/L (98-107) Carbon Dioxide Level 31 MMOL/L (21-32) Anion Gap 7 mmol/L (5-15) Blood Urea Nitrogen 15 mg/dL (7-18) Creatinine 0.9 MG/DL (0.55-1.30) Estimat Glomerular Filtration Rate > 60 mL/min (>60) Glucose Level 120 MG/DL (74-106) Calcium Level 8.6 MG/DL (8.5-10.1) Total Bilirubin 0.5 MG/DL (0.2-1.0) Aspartate Amino Transf (AST/SGOT) 20 U/L (15-37) Alanine Aminotransferase (ALT/SGPT) 31 U/L (12-78) Alkaline Phosphatase 98 U/L (46-116) Total Protein 7.8 G/DL (6.4-8.2) Albumin 3.1 G/DL (3.4-5.0) Globulin 4.7 g/dL Albumin/Globulin Ratio 0.7 (1.0-2.7) Lipase 36 U/L (73-393) Last Vital Signs Date Time Temp Pulse Resp B/P (MAP) Pulse Ox O2 Delivery O2 Flow Rate FiO2 04/04/19 03:16 94 20 Room Air 04/04/19 03:16 97.0 152/186 98 Status: improved Disposition: HOME, SELF-CARE Condition: Stable Scripts Ondansetron Odt* (ZOFRAN ODT*) 4 Mg Tab.rapdis 4 MG BC EVERY 6 HOURS PRN for Nausea & Vomiting, #20 TAB 0 Refills Prov: Zenon Artis MD 04/04/19 Ranitidine Hcl* (ZANTAC*) 150 Mg Tablet 150 MG ORAL TWICE A DAY, #30 TAB Prov: Zenon Artis MD 04/04/19 Referrals: NOT CHOSEN IPA/,REFERRING (PCP) Clarisa Desai [facility] Patient Instructions: Gastritis, Adult, [id number] Zenon Artis MD Apr 04, 2019 05:46
== END 2019-04-04 05:44 | disposition home or self-care (01) ==
LOC: EDBD 03:10 → EMR 03:50
DX: K29.00 Acute gastritis without bleeding (principal)
CPT/HCPCS: 36415; 80053; 83690; 85025; 96361; 96374; 96375; 99284; J2405; J7030; S0028